=== PATIENT | female | born 2000 | race Caucasian/White ===

== ENCOUNTER 2023-09-19 01:36 | Emergency (ER) | payer OTHER, SELFPAY ==
[2023-09-19 01:37] VITALS: BP 158/103
--- NOTE | 2023-09-19 02:15 | ED.GENMED ---
History of Present Illness
General
Chief Complaint: Oral/Mouth Problem
Source: patient
Exam Limitations: none
Time Seen by Provider: 09/19/23 01:58
Travel History
Have you had any contact with someone who has COVID-19?: No
Do you have any symptoms of coronavirus? Fever > 100 degrees, chills, cough, shortness of breath, sore throat, loss of taste or smell, muscle aches, or headache?: No
History of Present Illness
History of Present Illness:
23-year-old female 7 months presents with 1 day worth of left upper dental pain getting worse with time despite the use of Tylenol. She denies sweats or chills or fever. She feels that it is a little swollen. She can see the dentist in 2
days. No other complaints at this time
Phy Exam
Physical Exam
Physical Exam:
General: Well-appearing female no acute distress
HEENT: Normocephalic atraumatic no trismus or drooling. No facial asymmetry posterior pharynx is patent without asymmetry. The roof of the mouth is soft so is the floor the mouth. Neck is supple no adenopathy dentition appears well overall
however the left maxillary teeth are slightly tender. No gum changes
Course
Vital Signs
Initial and Last Documented VS:
Initial Vital Signs
Temp Pulse Resp BP Pulse Ox
98.5 F 94 18 158/103 100
09/19/23 01:37 09/19/23 01:37 09/19/23 01:37 09/19/23 01:37 09/19/23 01:37
Last Documented Vital Signs
Temp Pulse Resp BP Pulse Ox
98.5 F 94 18 158/103 100
09/19/23 01:37 09/19/23 01:37 09/19/23 01:37 09/19/23 01:37 09/19/23 01:37
MDM/Problems Addressed
Differential Diagnosis Includes:
Left upper dental pain. Consider possible underlying infection. Tylenol not helping. She cannot take anti-inflammatory secondary to the . Will give a dental block with a mixture of half percent Marcaine and 1% lidocaine. This was
provided patient is feeling improvement. Will also start on penicillin for coverage. She sees a dentist in 2 days
*Critical Care Note
Total Time (30-74mins, 75-104mins- exclusive of procedures): Not Applicable
ED Attending Note
-
Portions of this chart may have been created with voice recognition software.� Occasional wrong word or��sound alike� substitutions may have occurred due to the inherent limitations of voice recognition software.
Discharge Plan
Departure
Patient Disposition: Home (Routine Discharge)
Date of Disposition: 09/19/23
Time of Disposition: 02:17
Patient with high blood pressure during this ER visit?: No
Discharge Problem:
Pain, dental
Instructions: Tooth Abscess (DC)
Prescriptions:
New
penicillin V potassium 500 mg tablet
500 mg PO QID Qty: 27 0RF
No Action
prazosin 1 MG capsule
1 mg PO HS
melatonin 3 MG tablet
9 mg PO HS
diphenhydramine HCl [Benadryl] 25 MG capsule
50 mg PO HS
norgestimate-ethinyl estradiol [TriNessa (28)] 1 EACH tablet
1 ea PO DAILY
fluoxetine 20 MG capsule
20 mg PO DAILY
aripiprazole [Abilify] 5 MG tablet
10 mg PO BID
mirtazapine 7.5 MG tablet
7.5 mg PO DAILY
hydroxyzine pamoate 25 MG capsule
25 mg PO PRN PRN (Reason: anxiety)
Referrals:
Romina Loaiza, DO [Family Provider] -
Activity Restrictions/Additional Instructions:
You may rinse with warm salt water. Continue with Tylenol for pain. Use antibiotic as directed. Return if worse otherwise follow-up with dentist as planned
Discharge Date and Time
Print Language: CAMBODIAN
[2023-09-19] MEDS: PEN VK 500 MG PO (02:27)
== END 2023-09-19 02:33 | disposition home or self-care (01) ==
LOC: EMR 01:36
PROVIDERS: EMERGENCY PHYSICIAN Emergency Medicine; FAMILY PHYSICIAN Family Medicine
DX: O99.891 Other specified diseases and conditions complicating pregnancy (principal); K08.89 Other specified disorders of teeth and supporting structures
CPT/HCPCS: 99282

== ENCOUNTER 2024-08-24 08:00 | Emergency (ER) | payer OTHER, SELFPAY ==
[2024-08-24 08:02] VITALS: BP 153/96
--- NOTE | 2024-08-24 08:33 | ED.SKININJ ---
HPI-Injury
General
Chief Complaint: Eye Problems
Source: patient
Exam Limitations: none
Time Seen by Provider: 08/24/24 08:13
History of Present Illness-Injury
Initial Injury comments:
24-year-old female presents with left eye discomfort. She states her 9-month-old baby scratched her eye yesterday. She notes it is more painful today. She notes that sensitive to open. She sometimes wears glasses but does not wear contacts. She
notes some mild blurry vision. No other complaints
Phy Exam
Physical Exam
Physical Exam:
General: Well-appearing female no acute respiratory distress
HEENT: Left eye examined with fluorescein stain and a [place] lamp. Pain relief was provided with topical proparacaine solution. After this occurred, the eye was examined. There is a approximate 3 x 2 mm corneal abrasion over the inferior portion
of the cornea at around the 6 o'clock position. The superior end of this does extend over top of the pupil. The pupil is round and reactive to light. The lids were everted and there is no foreign bodies. There is no hyphema.
Skin: Surrounding skin is without erythema or swelling
Course
Vital Signs
Initial and Last Documented VS:
Initial Vital Signs
Temp Pulse Resp BP Pulse Ox
98.5 F 74 16 153/96 98
08/24/24 08:02 08/24/24 08:02 08/24/24 08:02 08/24/24 08:02 08/24/24 08:02
Last Documented Vital Signs
Temp Pulse Resp BP Pulse Ox
98.5 F 74 16 153/96 98
08/24/24 08:02 08/24/24 08:02 08/24/24 08:02 08/24/24 08:02 08/24/24 08:02
MDM/Problems Addressed
Differential Diagnosis Includes:
Corneal abrasion. Recommend Motrin and Tylenol and cool compresses for pain relief. Will start erythromycin ointment. Advise follow-up with eye doctor.
*Critical Care Note
Total Time (30-74mins, 75-104mins- exclusive of procedures): Not Applicable
ED Attending Note
-
Portions of this chart may have been created with voice recognition software.� Occasional wrong word or��sound alike� substitutions may have occurred due to the inherent limitations of voice recognition software.
Discharge Plan
Departure
Patient Disposition: Home (Routine Discharge)
Date of Disposition: 08/24/24
Time of Disposition: 08:35
Patient with high blood pressure during this ER visit?: No
Discharge Problem:
Corneal abrasion
Instructions: Corneal Abrasion (DC)
Prescriptions:
No Action
prazosin 1 MG capsule
1 mg PO HS
melatonin 3 MG tablet
9 mg PO HS
diphenhydramine HCl [Benadryl] 25 MG capsule
50 mg PO HS
norgestimate-ethinyl estradiol [TriNessa (28)] 1 EACH tablet
1 ea PO DAILY
fluoxetine 20 MG capsule
20 mg PO DAILY
aripiprazole [Abilify] 5 MG tablet
10 mg PO BID
mirtazapine 7.5 MG tablet
7.5 mg PO DAILY
hydroxyzine pamoate 25 MG capsule
25 mg PO PRN PRN (Reason: anxiety)
penicillin V potassium 500 mg tablet
500 mg PO QID Qty: 27 0RF
Activity Restrictions/Additional Instructions:
Use the ointment every 4 hours. You may take Tylenol or ibuprofen for pain or apply cool compresses to the eye for pain relief. Follow-up with your eye doctor as planned. Return if needed otherwise.
Interventions
Interventions:
*Risk Screen - Suicide Last Done: 08/24/24 08:02
*Neglect/Abuse Screening Last Done: 08/24/24 08:02
Discharge Date and Time
Print Language: MONEGASQUE
[2024-08-24] MEDS: ERYTHROMYCIN 0.5% OPHTHALMIC OINTMENT 1 APPLIC OPHTH (08:44)
== END 2024-08-24 09:01 | disposition home or self-care (01) ==
LOC: EMR 08:00
PROVIDERS: EMERGENCY PHYSICIAN Emergency Medicine; FAMILY PHYSICIAN Family Medicine
DX: S05.02XA Injury of conjunctiva and corneal abrasion without foreign body, left eye, initial encounter (principal); W50.4XXA Accidental scratch by another person, initial encounter
CPT/HCPCS: 99283